=== PATIENT | male | born 1985 | race Caucasian/White ===

== ENCOUNTER 2019-11-21 12:05 | Emergency (ER) | payer SELFPAY ==
[2019-11-21 12:23] VITALS: BP 145/72; PULSE 110; RESP 16; TEMP 36.8; O2SAT 96; BMI 25.0
--- NOTE | 2019-11-21 12:45 | W.ED.SKABFB ---
HPI - Skin/Abscess/Foreign Bdy General: Chief complaint: Skin/Abscess/Foreign Body Stated complaint: blisters Time Seen by Provider: 11/21/19 12:39 History of Present Illness: HPI narrative: Patient has been abusing methamphetamines and taking areas on his arm now he has sores on his arm MD complaint: other Onset (ago): day(s) Tetanus up to date: unsure Location: LUE and RUE Severity: mild Severity scale (1-10): 1 Associated symptoms: Deny chills, fever(s), nausea or vomiting Review of Systems Const: Denies: fever(s), chills or body aches Eyes: Denies: change in vision or blurry vision ENMT: Denies: throat pain or nasal congestion Card: Denies: chest pain or dyspnea on exertion Resp: Denies: dyspnea, productive cough or non-productive cough GI: Denies: abdominal pain, nausea or vomiting : Denies: difficulty urinating Musc: Denies: extremity pain Skin/Breast: Reports: other (Sores to his arms and his hands has been abusing methamphetamines); Denies: rash Neuro: Denies: headache(s) Psych: Denies: anxiety or depression Maikol/Lymph: Denies: easy bruising Physical Exam Const: COMMON NORMALS: no acute distress, average body habitus and patient oriented x3 HENMT: COMMON NORMALS: normocephalic HEAD & SCALP: normal to inspection and normocephalic FACE & SINUS: normal facial exam Eye: COMMON NORMALS: conjunctivae normal GENERAL EYE: appearance normal, both eyes and all related structures CONJUNCTIVA: Yes conjunctivae normal Neck/C-Spine: COMMON NORMALS: no JVD Chest: COMMONS NORMALS: normal inspection of the chest Resp: COMMON NORMALS: normal respiratory effort and clear to auscultation bilaterally AUSCULTATION: clear to auscultation bilaterally Cardio: COMMON NORMALS: no JVD, regular rate and regular rhythm RATE: regular rate RHYTHM: regular rhythm GI: COMMON NORMALS: Normal to inspection, nondistended, normoactive bowel sounds present Extremity: COMMON NORMALS: normal to inspection and full ROM Neuro: COMMON NORMALS: patient oriented x3 Skin: NARRATIVE SKIN EXAM: Patient has scattered excoriated sores up and down his arms his hands that look like they have been picked at by patient no erythema noted to him Course Vital Signs: Vital signs: Vital Signs Temperature 98.2 F 11/21/19 12:23 Pulse Rate 110 H 11/21/19 12:23 Respiratory Rate 16 11/21/19 12:23 Blood Pressure 145/72 11/21/19 12:23 Pulse Oximetry 96 11/21/19 12:23 Discharge Plan Discharge Patient Disposition: Home, Self-Care Clinical Impression: Methamphetamine abuse Eczema Qualifiers: Eczema type: unspecified Qualified Code(s): L30.9 - Dermatitis, unspecified Condition: Stable Prescriptions: New mupirocin 2 % ointment 1 applic TOPICAL TID Qty: 22 RF: 0 Bactrim DS 800-160 mg tablet 1 tab PO BID 7 Days Qty: 14 RF: 0 Discharge Orders: Discharge Order (Routine); Ordered 11/21/19 Ordered By: Paolo Miner Discharge Diet: Usual diet Discharge Activity: Resume usual activity Patient Instructions: Acute Wound Care (ED), Methamphetamine Abuse (ED) Activity Restrictions/Additional Instructions: Follow-up with medical provider as directed. Take medications as prescribed. Return to the ER or your medical provider if condition worsens. Please read and understand discharge instructions. If any questions ask please. Do not do any more methamphetamine Coding Level of Care Code ED Application Development Specialist for Lawrence Maldonado
== END 2019-11-21 13:32 | disposition home or self-care (01) ==
PROVIDERS: Emergency Provider Nurse Practitioner Family
DX: L30.9 Dermatitis, unspecified (principal); F15.10 Other stimulant abuse, uncomplicated
CPT/HCPCS: 12345; 99281

== ENCOUNTER 2020-06-20 07:54 | Emergency (ER) | payer SELFPAY ==
[2020-06-20 08:08] VITALS: BP 123/86; PULSE 65; RESP 16; TEMP 36.7; O2SAT 97; BMI 28.3
--- NOTE | 2020-06-20 08:10 | W.ED.ABDPA2 ---
HPI - Abdominal Pain General: Chief Complaint: Nausea/Vomiting/Diarrhea Stated Complaint: Diarrhea/Loss of consciousness/N/V/Fever Time Seen by Provider: 06/20/20 08:02 Source: patient Mode of arrival: ambulatory Limitations: no limitations History of Present Illness: HPI narrative: 34-year-old male patient comes in today with persistent nausea vomiting and diarrhea for the last 2 weeks. Patient reports a loss of 10 pounds of weight. Patient denies any blood in vomit or stool. Patient does report occasional chills. Patient does have a history of IV drug use but reports being clean for several months now. Patient does report a history of endocarditis. Patient denies any other major infections. Patient appears well. Patient appears in no acute distress. Patient appears in no pain. Patient denies any abdominal surgeries. Patient denies any recent use of antibiotics. Patient reports no routine use of medications. MD elicited complaint: abdominal pain Location: Diffuse Quality: dull Exacerbating factors: eating Associated Symptoms: Reports diarrhea, nausea and vomiting Review of Systems General: Reports: 10 or more systems reviewed and unremarkable except in HPI and below GI: Reports: nausea, vomiting and diarrhea Physical Exam Const: COMMON NORMALS: no acute distress and patient oriented x3 GENERAL APPEARANCE: cooperative HENMT: COMMON NORMALS: normocephalic, TM's normal bilaterally and Normal external nose present HEAD & SCALP: normal to inspection and normocephalic NOSE: Normal external nose present TYMPANIC MEMBRANE: TM's normal bilaterally MOUTH: Normal oral and palatal mucosa present THROAT: posterior oropharynx normal Eye: GENERAL EYE: appearance normal, both eyes and all related structures Neck/C-Spine: COMMON NORMALS: full ROM Lymph: LYMPHATIC: no lymphadenopathy noted Chest: COMMONS NORMALS: normal inspection of the chest Resp: COMMON NORMALS: normal respiratory effort EFFORT & INSPECTION: Yes able to speak in complete sentences Cardio: COMMON NORMALS: regular rate and regular rhythm RATE: regular rate RHYTHM: regular rhythm GI: COMMON NORMALS: Soft to palpation INSPECTION: Yes normal to inspection AUSCULTATION: Yes Hyperactive bowel sounds present PALPATION: Yes Soft to palpation and Yes Tenderness to palpation present (GI) (Generalized) PERCUSSION: normal to percussion RECTAL EXAM: Yes deferred : COMMON NORMALS: Yes no CVA tenderness BLADDER/KIDNEY EXAM: Yes no CVA tenderness Back/Pelvis: COMMON NORMALS: no CVA tenderness and thoracic and lumbar spine normal to inspection Extremity: COMMON NORMALS: normal to inspection Neuro: COMMON NORMALS: patient oriented x3 and moves all extremities Psych: COMMON NORMALS: mental status grossly normal and cooperative Skin: COMMON NORMALS: no rashes or lesions noted GENERAL SKIN EXAM: no rashes or lesions noted Course Vital Signs: Vital signs: Vital Signs Temperature 98.1 F 06/20/20 08:08 Pulse Rate 66 06/20/20 08:13 Respiratory Rate 16 06/20/20 08:13 Blood Pressure 123/86 06/20/20 08:13 Pulse Oximetry 98 06/20/20 08:13 MDM - Abdominal Pain MDM Narrative: Medical decision making narrative: Patient comes in today for complaints of persistent vomiting and diarrhea for the last 2 weeks. Patient appears well and in no pain. Exam notes some tenderness in the abdomen diffusely. Skin is warm and dry. Turgor is normal. Patient reported a 10 pound weight loss. [place] is moist. Differential diagnosis includes but not limited to cholecystitis, pancreatitis, colitis. Laboratory values were unremarkable except for mild polycythemia and mild leukocytosis. Patient was given 1 L of IV fluids. CT scan noted some colitis. I suspect episode of infectious colitis we will go ahead and treat with Cipro and Flagyl for the next 7 days. Patient was informed that he should follow-up in 3 to 4 days with primary care and if diarrhea persist he may need to have a colonoscopy. Patient reported understanding and agreed to plan. Lab Data: Labs: Lab Results 06/20/20 06/20/20 06/20/20 Range/Units 08:30 08:30 08:30 WBC 13.8 H (4.0-10.0) 10^3/ uL RBC 6.18 H (4.1-5.3) 10^6/u L Hgb 17.2 H (11.7-16.6) g/dL Hct 53.8 H (42.0-52.0) % MCV 87.1 (80-94) fL MCH 27.8 L (28.0-34.0) pg MCHC 32.0 (30.0-36.0) g/dL RDW 14.2 (12.1-15.1) % Plt Count 364 (130-400) 10^3/c mm MPV 9.9 (7.4-10.4) fL Neut % (Auto) 50.8 % Lymph % (Auto) 18.5 % [place] % (Auto) 5.5 % Eos % (Auto) 24.3 % Baso % (Auto) 0.7 % Neut # (Auto) 7.03 (1.8-7.7) 10^3/u L Lymph # (Auto) 2.6 (0.8-4.8) 10^3/u L [place] # (Auto) 0.8 (0.2-0.9) 10^3/u L Eos # (Auto) 3.4 H (0.0-0.8) 10^3/u L Baso # (Auto) 0.1 (0.0-0.1) 10^3/u L Nucleated RBC % (a uto) 0 % Nucleated RBCs # 0.0 /100WBC Sodium 141 (136-145) mmol/L Potassium 4.4 (3.5-5.1) mmol/L Chloride 103 (98-107) mmol/L Carbon Dioxide 27 (22-29) mmol/L Anion Gap 15.4 (5-19) BUN 12 (6-20) mg/dL Creatinine 0.8 (0.7-1.2) mg/dL GFR Calculation 109.4 (90-130) mL/min Glucose 95 (65-115) mg/dL Calculated Osmolal ity 292 (285-295) mOsm/k g Calcium 9.6 (8.5-10.5) mg/dL Total Bilirubin 0.5 (0.15-1.2) mg/dL AST 13 (0-40) U/L ALT 16 (0-41) U/L Alkaline Phosphata se 81 (40-130) IU/L Total Protein 7.9 (6.6-8.7) g/dL Albumin 4.7 (3.5-5.2) g/dL Globulin 3.2 (1.3-4.6) g/dL Lipase 40 (13-60) U/L Urine Color Yellow (Yellow) Urine Appearance Clear (CLEAR) Urine pH 6 (5-7) Ur Specific Gravit y 1.015 (1.005-1.030) Urine Protein Neg (Negative) Urine Glucose (UA) Norm (Normal) Urine Ketones Negative (Negative) Urine Blood Neg (Negative) Urine Nitrate Negative (Negative) Urine Bilirubin 1+ H (Negative) Urine Urobilinogen 1 H (Negative) mg/dL Ur Leukocyte Radha ase Negative (Negative) Discharge Plan Discharge Patient Disposition: Home Clinical Impression: Infectious colitis Condition: Stable Prescriptions: New ciprofloxacin HCl 500 mg tablet 500 mg PO BID Qty: 14 RF: 0 metronidazole 500 mg tablet 500 mg PO TID Qty: 21 RF: 0 ondansetron HCl 4 mg tablet 4 mg PO Q8H PRN (Reason: nausea and vomiting) Qty: 10 RF: 0 No Action mupirocin 2 % ointment 1 applic TOPICAL TID Qty: 22 RF: 0 Discharge Orders: Discharge ED (Routine); Ordered 06/20/20 Ordered By: Og Han Discharge Diet: Advance as tolerated Discharge Activity: Resume usual activity Patient Instructions: Diet for Ulcers and Gastritis (ED) Activity Restrictions/Additional Instructions: Drink plenty of fluids. Drink electrolyte solution 2 or 3 times a day to help with loss of electrolytes. Take antibiotics as directed. Eat a light diet avoiding spicy, greasy, and acidic foods. Follow-up with primary care in 3 to 4 days for recheck. Return to the emergency department for leyda blood in bowel or vomit. Coding Level of Care Code ED Cat Dog Or Other Pet Groomer for Chg Fwd Exam Comprehensive
[2020-06-20 08:13] VITALS: BP 123/86; PULSE 66; RESP 16; O2SAT 98
--- NOTE | 2020-06-20 08:16 | CTR_ITS ---
PROCEDURE INFORMATION: Exam: CT Abdomen And Pelvis With Contrast Exam date and time: 06/20/2020 8:46 AM Age: 34 years old Clinical indication: Abdominal pain; Generalized; Additional info: Abd pain non-localized, persistent n/v/d, wt loss TECHNIQUE: Imaging protocol: Computed tomography of the abdomen and pelvis with contrast. Radiation optimization: All CT scans at this facility use at least one of these dose optimization techniques: automated exposure control; mA and/or kV adjustment per patient size (includes targeted exams where dose is matched to clinical indication); or iterative reconstruction. Contrast material: OMNIPAQUE 300; Contrast volume: 95 ml; Contrast route: INTRAVENOUS (IV); COMPARISON: No relevant prior studies available. RADIATION DOSE METRICS: Total DLP (mGy-cm): 913.45 FINDINGS: Mediastinal space: A small hiatal hernia is present. Liver: Normal. No mass. Gallbladder and bile ducts: Normal. No calcified stones. No ductal dilation. Pancreas: Normal. No ductal dilation. Spleen: A small accessory splenule is noted in the left upper quadrant. The spleen is unremarkable. Adrenal glands: Normal. No mass. Kidneys and ureters: Normal. No hydronephrosis. Stomach and bowel: The sigmoid colon demonstrates mild wall thickening with possible mild mural hyperenhancement, in association with slight prominence of the vasa recta, and fibrofatty proliferation. No fistula, stricture or abscess identified. Appendix: No evidence of appendicitis. Intraperitoneal space: Unremarkable. No free air. No significant fluid collection. Vasculature: Unremarkable. No abdominal aortic aneurysm. Lymph nodes: Unremarkable. No enlarged lymph nodes. Urinary bladder: Unremarkable as visualized. Reproductive: Unremarkable as visualized. Bones/joints: Unremarkable. No acute fracture. Soft tissues: Unremarkable. CT/CT abdomen pelvis w con* [id number] IMPRESSION: Imaging findings suggestive of mild inflammatory colitis involving the sigmoid colon. Infectious process should also be considered. Radiation Dose CTDIVOL = (mGy): DLP = 913.45 (mGy-cm)
[2020-06-20] MEDS: sodium chloride 0.9% 1,000 ML 999 ML IV (08:35)
[2020-06-20 08:41] LABS: Basophils # 0.1 10^3/uL (0.0-0.1); Basophils % 0.7 %; Eosinophils # 3.4 10^3/uL (0.0-0.8); Eosinophils % 24.3 %; Hematocrit 53.8 % (42.0-52.0); Hemoglobin 17.2 g/dL (11.7-16.6); Lymphocytes # 2.6 10^3/uL (0.8-4.8); Lymphocytes % 18.5 %; Mean Corpuscular Hemoglobin 27.8 pg (28.0-34.0); Mean Corpuscular Volume 87.1 fL (80-94); Mean Platelet Volume 9.9 fL (7.4-10.4); Monocytes # 0.8 10^3/uL (0.2-0.9); Monocytes % 5.5 %; Neutrophils # 7.03 10^3/uL (1.8-7.7); Neutrophils % 50.8 %; Nucleated Red Blood Cells % 0 %; Platelet Count 364 10^3/cmm (130-400); Red Blood Count 6.18 10^6/uL (4.1-5.3); Red Cell Distribution Width 14.2 % (12.1-15.1); White Blood Count 13.8 10^3/uL (4.0-10.0)
[2020-06-20 08:42] LABS: Add Urine Microscopic? NO
[2020-06-20 08:44] LABS: Bilirubin Urine 1+ (Negative); Blood Urine Neg (Negative); Glucose Urine UA Norm (Normal); Ketones Urine Negative (Negative); Leukocyte Esterase Urine Negative (Negative); Nitrate Urine Negative (Negative); Protein Urine Neg (Negative); Specific Gravity, Urine 1.015 (1.005-1.030); Urine Appearance Clear (CLEAR); Urine Color Yellow (Yellow); Urobilinogen Urine 1 mg/dL (Negative); pH Urine 6 (5-7)
[2020-06-20] MEDS: iohexol 300 mg/mL 100 mL Btl IV (08:53)
[2020-06-20 08:57] LABS: Alanine Aminotransferase 16 U/L (0-41); Albumin Level 4.7 g/dL (3.5-5.2); Alkaline Phosphatase 81 IU/L (40-130); Aspartate Amino Transferase 13 U/L (0-40); Blood Urea Nitrogen 12 mg/dL (6-20); Calcium 9.6 mg/dL (8.5-10.5); Carbon Dioxide 27 mmol/L (22-29); Chloride 103 mmol/L (98-107); Globulin 3.2 g/dL (1.3-4.6); Glomerular Filtration Rate 109.4 mL/min (90-130); Glucose 95 mg/dL (65-115); Lipase 40 U/L (13-60); Osmolality Calculated 292 mOsm/kg (285-295); Sodium 141 mmol/L (136-145); Total Bilirubin 0.5 mg/dL (0.15-1.2); Total Protein 7.9 g/dL (6.6-8.7)
[2020-06-20 10:00] LABS: Anion Gap 15.4 (5-19); Potassium 4.4 mmol/L (3.5-5.1)
[2020-06-20] MEDS: ciprofloxacin 500 mg Tablet PO (10:03)
[2020-06-20] MEDS: metroNIDAZOLE 500 MG Tablet PO (10:03)
[2020-06-20] MEDS: ondansetron 2 mg/ML SDV 2 mL 4 MG IVP (10:04)
[2020-06-20 10:19] VITALS: PULSE 68; RESP 16; O2SAT 99
== END 2020-06-20 10:20 | disposition home or self-care (01) ==
PROVIDERS: Emergency Provider Nurse Practitioner Family
DX: A09 Infectious gastroenteritis and colitis, unspecified (principal)
CPT/HCPCS: 12345; 74177; 80053; 81003; 83690; 85025; 96361; 96374; 99282; 99283; J2405; J7030; Q9967

== ENCOUNTER 2023-05-20 00:07 | Emergency (ER) | payer OTHER, SELFPAY ==
[2023-05-20 00:20] VITALS: BP 134/81; PULSE 102; RESP 18; TEMP 37.7; O2SAT 97; BMI 34.8
--- NOTE | 2023-05-20 00:26 | XRR_ITS ---
PROCEDURE INFORMATION: Exam: XR Chest Exam date and time: 05/20/2023 12:29 AM Age: 37 years old Clinical indication: Cough and fever; Patient HX: Cough with fever; Additional info: Cough, fevers TECHNIQUE: Imaging protocol: Radiologic exam of the chest. Views: 1 view. COMPARISON: CT abdomen pelvis w con* [id number] 06/20/2020 8:50 AM FINDINGS: Lungs: Unremarkable. No consolidation. Pleural spaces: Unremarkable. No pleural effusion. No pneumothorax. Heart/Mediastinum: Unremarkable. No cardiomegaly. Bones/joints: Unremarkable. XR/XR chest 1V portable [id number] IMPRESSION: No acute findings.
--- NOTE | 2023-05-20 00:26 | ED_ITS ---
HPI - URI/Sore Throat General: Chief Complaint: Fever Stated Complaint: fever sob body aches Time Seen by Provider: 05/20/23 00:15 Source: patient Mode of arrival: ambulatory Limitations: no limitations History of Present Illness: Patient is a 37-year-old male presents to ED today along with his significant other who is also being seen for identical symptoms here for complaints of fevers, body aches, chills, productive cough, nasal congestion, decreased appetite as well as headache. Symptoms have been present over the past 3 to 4 days. He states fevers have been as high as 102. He has been treating with [id number] Coricidin. He does report occasional mild diarrhea. He is not having any abdominal pain or cramping. No vomiting. He denies rash or neck pain/stiffness. MD elicited complaint: fever, cough and nasal congestion Onset (ago): day(s) Consistency: constant Severity: moderate Description of mucous: clear and yellow Able to tolerate fluids by mouth: Yes Exacerbating factors: nothing Relieving factors: nothing Context: sick contacts (significant other with same symptoms) Associated symptoms: Reports chills, diarrhea, fever(s) and nasal congestion; Deny abdominal pain, chest pain, ear or mastoid pain, headache(s), nausea, sinus pain or vomiting Treatments prior to arrival: other (OTC Coricidin) Review of Systems Const: Reports: fever(s), chills, body aches and change in appetite Eyes: Denies: change in vision, blurry vision or photophobia ENMT: Reports: nasal congestion; Denies: throat pain, odynophagia, ear or mastoid pain, nasal discharge or sinus pain Card: Denies: chest pain, palpitations, irregular heart rhythm, edema, lightheadedness, syncope or pre-syncope Resp: Reports: productive cough, pain on inspiration and chest congestion; Denies: wheezing, stridor or hemoptysis GI: Reports: diarrhea; Denies: abdominal pain, nausea or vomiting : Denies: flank pain, dysuria or hematuria Musc: Denies: neck pain, back pain, extremity pain or joint pain Skin/Breast: Denies: rash Neuro: Denies: headache(s), numbness in extremities, weakness in extremities or sensory changes PFSH ED PFSH: Social History (Reviewed 01/07/24 @ 00:34 by ALETHA Goode Smoking and tobacco/nicotine status: current every day tobacco/nicotine user cigarettes Packs smoked per day: 0.5 Years cigarettes smoked: 20 Quit status (tobacco/nicotine): has tried quititng Number of times tried to quit tobacco: 6 Second hand smoke exposure: Yes Alcohol intake: never Substance/Drug Use: never Adopted: Yes Caregiver/support person: No Lives independently: Yes Household members: significant other Marital status: Life Partner Number of children: 1 Highest education level completed: High School Graduate service: No Current occupational status: employed Current occupation: catepiller Current occupational exposures/hazards: Yes Pets and animals: Yes Pets & animals: dog(s) Sexually active: Yes Do you think of yourself as: Straight/Heterosexual Current gender identity: Male Special nish needs: No Agree to transfusion: No Physical Exam Const: COMMON NORMALS: no acute distress, average body habitus, patient oriented x3, no limitations, alert and well nourished GENERAL APPEARANCE: cooperative and appears older than stated age ORIENTATION/CONSCIOUSNESS: Yes awake, Yes oriented to person, Yes oriented to place and Yes oriented to time HENMT: COMMON NORMALS: normocephalic, atraumatic, hearing grossly normal bilaterally, external ears normal, EAC's normal, TM's normal bilaterally, Normal external nose present, Normal nasal mucous membranes and turbinates present and moist oral mucous membranes HEAD & SCALP: normal to inspection, normocephalic and atraumatic FACE & SINUS: normal facial exam and sinuses nontender NOSE: Normal external nose present and Normal nasal mucous membranes and turbinates present EXTERNAL EAR: Yes external ears normal EXTERNAL AUDITORY CANAL: EAC's normal TYMPANIC MEMBRANE: TM's normal bilaterally MOUTH: Normal oral and palatal mucosa present and lip normal TEETH & GINGIVA: Yes poor dentition THROAT: tonsils normal, uvula midline and posterior oropharynx abnormal erythema Eye: COMMON NORMALS: Equal, round and reactive pupils present, EOMs intact bilaterally and conjunctivae normal CONJUNCTIVA: Yes conjunctivae normal PUPIL: Yes Equal, round and reactive pupils present Neck/C-Spine: COMMON NORMALS: no lymphadenopathy Chest: COMMONS NORMALS: normal inspection of the chest Resp: COMMON NORMALS: normal respiratory effort and clear to auscultation bilaterally AUSCULTATION: clear to auscultation bilaterally Cardio: COMMON NORMALS: regular rate and regular rhythm RATE: regular rate RHYTHM: regular rhythm Neuro: COMMON NORMALS: patient oriented x3 SENSORIUM/ORIENTATION: Yes alert, Yes oriented to person, Yes oriented to place and Yes oriented to time Skin: COMMON NORMALS: no rashes or lesions noted GENERAL SKIN EXAM: no rashes or lesions noted Course Vital Signs: Vital signs: Vital Signs Temperature 99.8 F H 05/20/23 00:20 Pulse Rate 102 H 05/20/23 00:20 Respiratory Rate 18 05/20/23 00:20 Blood Pressure 134/81 05/20/23 00:20 Pulse Oximetry 97 05/20/23 00:20 Oxygen Delivery Me thod Room Air 05/20/23 00:20 MDM - URI/Sore Throat Medical Decision Making Patient here for signs and symptoms consistent with viral upper respiratory illness/viral illness. He is here with his significant other who is also being seen for identical complaints. Vital signs are stable. He arrives with low- grade fevers. CXR showing no acute findings. His COVID is negative. Influenza obtained. Delay in the results of his lab states they have to be run as they obtained an error. Patient will be called later this evening if it results as positive. He can also contact us in the morning to get his results. Discussed conservative therapies at home. Medical Records I reviewed the patient's medical records. Lab Data I reviewed the patient's lab results. Radiology Impressions Chest X-Ray 05/20/23 00:26 IMPRESSION: No acute findings. Laboratory Results SARS-CoV-2 Ag (Rapid) negative (Negative) 05/20/23 00:43 All radiology interpretation(s) finalized by discharge Discharge Plan Discharge Patient Disposition: Home Clinical Impression: Viral upper respiratory tract infection with cough Condition: Stable Prescriptions: No Action trazodone 100 mg tablet 200 mg PO .HS PRN (Reason: insomnia) Qty: 180 0RF fluticasone propionate [Flonase Allergy Relief] 50 mcg/actuation spray,suspension 2 spray intranasal DAILY Qty: 16 0RF Rx Instructions: administer into each nostril cetirizine [Allergy Relief (cetirizine)] 10 mg tablet 10 mg PO DAILY Qty: 30 0RF meclizine 25 mg tablet 25 mg PO BID Qty: 30 0RF Discharge Orders: Discharge ED (Routine); Ordered 05/20/23 Ordered By: Estela Escalera Referrals: Allen Narayanan DO [Primary Care Provider] - Patient Instructions: Upper Respiratory Infection (DC), Viral Syndrome (ED) Activity Restrictions/Additional Instructions: As we discussed your chest x-ray was normal. Your COVID was negative. Your influenza swab is currently pending. You will be contacted later for any positive result. You can also contact us in the morning to get your result. As we discussed you may continue conservative therapies at home for symptoms. Stand Alone Forms: Work/School Release Coding Level of Care Code ED Speech And Language Assistant for Lawrence Maldonado
[2023-05-20 01:08] LABS: SARS Covid-2 Antigen negative (Negative)
[2023-05-20 01:27] LABS: Influenza A by IFA Negative (Negative); Influenza B by IFA Negative (Negative)
[2023-05-20 01:34] VITALS: BP 132/96; PULSE 95; RESP 18; O2SAT 95
== END 2023-05-20 01:35 | disposition home or self-care (01) ==
PROVIDERS: Emergency Provider Physician Assistant; PCP Family Medicine
DX: J06.9 Acute upper respiratory infection, unspecified (principal); R05.9 Cough, unspecified; Z11.52 Encounter for screening for COVID-19; F17.210 Nicotine dependence, cigarettes, uncomplicated
CPT/HCPCS: 71045; 87426; 87804; 99284